=== PATIENT | male | born 1955 | race Caucasian/White ===

== ENCOUNTER 2016-10-14 11:35 | Inpatient (IN) | payer OTHER ==
--- NOTE | ~2016-10-14 | DS ---
Discharge Summary [facility] [address] [place]. [address] NAME: VIJAY POTTER : 57 STATUS : DIS IN PAT#: [id number] AGE: 61 ADM/REG DATE : 10/14/16 MR#: [id number] REPORT SERV DATE: 10/22/16 DICTATED BY: ROSALIO NARVAEZ DATE: 10/21/16 REPORT STATUS : Draft TRANSCRIBED BY: MODL DATE: 10/21/16 ADMISSION DATE: 10/14/2016 DISCHARGE DATE: 10/21/2016 CHIEF COMPLAINT ON ADMISSION: Shortness of breath, dyspnea on exertion, hypoxia, fevers, chills. DISCHARGE DIAGNOSES: 1. Acute pulmonary embolism with pulmonary hypertension, right ventricular systolic pressure of 64. 2. Acute hypoxic respiratory failure, discharged on home O2. 3. Diabetes mellitus. 4. Obstructive sleep apnea with obesity. 5. Chronic kidney disease status post nephrectomy. 6. Hypertension. 7. Pneumonia, community-acquired. HISTORY OF PRESENT ILLNESS: Please see full H and P from admission by nurse practitioner, Luz Medina. HOSPITAL COURSE: 1. Acute hypoxic respiratory failure. The patient was initially requiring very high level of high-flow nasal cannula. He was then able to be weaned down to 2 L nasal cannula. Presumably, this is due to his pulmonary emboli. Unable to do a CTA due to his kidney function. V/Q scan consistent with PE. Echocardiogram showing pulmonary hypertension with an RVSP of 64. Briefly, he stayed at [facility]. At this point, we have been able to wean him down to 2 L of nasal cannula. He will follow up with Pulmonary Medicine in [address] scan. There is question of a possible mass. At that point, they will determine if bronchoscopy is necessary. 2. Left-sided pneumonia. He was treated with 8 days of cefepime. We will discharge with an additional three days of Augmentin. 3. CKD with history of right nephrectomy for ICC in May 2016. He had mild acute kidney injury this admission with creatinine up to 2.1. His baseline is approximately 1.7ish. He is 1.82 at discharge. He can follow up with his outpatient urologist. 4. Obesity and obstructive sleep apnea. Continue nocturnal CPAP. 5. Hypertension and controlled on home medications. 6. Diabetes type 2, was controlled by diet at baseline with A1c of 6.4. He did require basal insulin with steroids. However, as the steroids were weaned, he is back to being diet controlled. 7. Pulmonary embolism. The patient, as mentioned above, was unable to get contrast due to kidney function. He did have a V/Q scan, which showed multiple moderate and large sized mismatch perfusion defect involving the lungs consistent with high probability for PE. He was started on heparin drip and has now been transitioned to Eliquis. He will follow up as mentioned above with Dr. Robert from Pulmonary Medicine. His echocardiogram, other than the RVSP of 64 with some RV dilatation, showed a normal left ventricular size and systolic function with an ejection fraction of 60%. Dr. Lopes who Discharge Summary [address] [address] NAME: VIJAY POTTER : 57 STATUS : DIS IN PAT#: [id number] AGE: 61 ADM/REG DATE : 10/14/16 MR#: [id number] REPORT SERV DATE: 10/22/16 DICTATED BY: ROSALIO NARVAEZ DATE: 10/21/16 REPORT STATUS : Draft TRANSCRIBED BY: DARIA DATE: 10/21/16 is the patient's outpatient studio operation engineer did follow him inpatient for a couple of days and had no further recommendations. DISCHARGE MEDICATIONS: Include Coreg 3.125 p.o. b.i.d., Norvasc 5 mg daily, Eliquis 10 mg p.o. b.i.d. for 11 more doses and 5 mg p.o. b.i.d., Augmentin for 3 more days, Fenofibrate 160 mg daily, verapamil 100 mg at bedtime, Robaxin p.r.n., Symbicort two puffs b.i.d., albuterol p.r.n., vitamin D and a probiotic. He will be discharged to home with 2 L nasal cannula continuously. Continue nocturnal BiPAP. FOLLOWUP: With Dr. Robert in 6 weeks and primary care in the interim. Follow up Dr. Lopes in Urology as previously scheduled. PERTINENT LABORATORY DATA: Prior to discharge, creatinine of 1.82. Hemoglobin of 13.3, white blood cell count of 14.3. Time spent on this discharge is greater than 30 minutes. [facility]/DARIA Rosalio Narvaez MD / [id number] CC: MD Vijay Lazcano M.D.
--- NOTE | ~2016-10-14 | HP ---
History And Physical [facility] [address] [facility] [place]. [address] NAME: PETER POTTER : 57 STATUS : ADM IN PAT#: [id number] AGE: 61 ADM/REG DATE : 10/14/16 MR#: [id number] REPORT SERV DATE: 10/15/16 DICTATED BY: DATE: REPORT STATUS : Draft TRANSCRIBED BY: DARIA DATE: 10/14/16 DATE OF ADMISSION: 10/14/2016 CHIEF COMPLAINT: Shortness of breath at rest, dyspnea on exertion, hypoxemia, fever, chills. PRIMARY UROLOGIST: Dr. Munson. Next office visit scheduled for December [address], status post right nephrectomy. PRIMARY MECHANICAL DEVELOPER PROVER: Dr. Curry, [facility]. New patient visit, 10/09/2016. PRIMARY PLANT ANATOMY TEACHER: Dr. Lopes. Last office visit 09/20/2016 with every 6-month followup. PRIMARY GRANITE CUTTER APPRENTICE: Dr. Greenberg. Last office visit, August 2016. HISTORY OF PRESENTING ILLNESS: The patient's history was obtained through careful interview with the patient coupled with review of [facility] records. The patient is a 61-year-old male, who presented to [facility] Emergency Department today with complaints of difficulty breathing at rest and severe dyspnea on exertion. The patient also reported an elevated temperature of 100.7 with chills last night. The patient complained of coming short of breath with activity approximately one week ago that has significantly increased over the past 2-3 days. The patient now complains of extreme shortness of breath at rest and with exertion. The patient stated that he has suffered from chronic "left lung pain" since September 2015. The patient describes this pain has stabbing in nature and intermittent throughout every day. The pain is rated between 7 and 10/10 on the pain scale. The patient also complains of left chest wall tenderness to palpation that radiates to left lateral ribs. The patient reports being hospitalized at [facility] between the dates of July 02, 2016 and July 04, 2016, for acute on chronic left lung pain. The patient states discharge diagnosis was musculoskeletal pain with no definitive underlying diagnoses to explain ongoing pain. The patient was referred to Dr. Curry, tub operator by his PCP for further evaluation and treatment of chronic left lung pain. The patient attended his first visit, 10/09/2016. During initial office visit, the patient was placed on Symbicort and a rescue inhaler. The patient is scheduled for an outpatient CT of the chest on 10/23/2016 with additional followup visit with Dr. Curry. The patient denies any known exposure to recent illness within his household. The patient did not receive a flu or pneumonia vaccine this year. It is noteworthy to mention that the patient stated he was referred to Dr. Lopes at [address] [address] NAME: PETER POTTER : 57 STATUS : ADM IN PAT#: [id number] AGE: 61 ADM/REG DATE : 10/14/16 MR#: [id number] REPORT SERV DATE: 10/15/16 DICTATED BY: DATE: REPORT STATUS : Draft TRANSCRIBED BY: DARIA DATE: 10/14/16 [facility] within the past year to rule out possible cardiac issues that could be contributing to chronic left lung pain. The patient states that his last office visit by Dr. Lopes was September 2016 and that he will return again for re-evaluation in 6 months. The patient states that all cardiac diagnostic workups have been negative. REVIEW OF SYSTEMS: Constitutional: Positive for recent fever reported to be 100.7 with chills within past 24 hours. Eyes: The patient wears glasses. No complaints of blurred or double vision. HEENT: No complaints of headache or sore throat. Cardiovascular: Complained of chronic atypical left-sided chest pain. Denies palpitations or syncopal episodes. Respiratory: Complains of left-sided pleuritic pain with shortness of breath at rest and dyspnea on exertion. Denies cough, wheezing, or hemoptysis. History of pneumonia in 1995 requiring hospitalization. Gastrointestinal: Denies nausea, vomiting, abdominal pain, diarrhea, and constipation. Last bowel movement was reported to be this morning. Musculoskeletal: Complains of chronic left calf cramping during the night x1 month. Integument: Denies rash or nonhealing wounds. Neurologic: Denies history of weakness, tremor, stroke, TIA, and seizure. Hematologic: Denies history of anemia, iron deficiency. Psychiatric: Denies history of depression, bipolar, and anxiety. : Denies dysuria or hematuria. Positive for recent renal cell cancer with right radical nephrectomy, May 2016. Endocrine: Positive for type 2 diabetes mellitus. HEALTH MAINTENANCE: The patient has not received flu vaccine. PAST MEDICAL HISTORY: 1. Right renal cell carcinoma, localized, status post right nephrectomy. 2. Chronic kidney disease with history of acute kidney injury, May 2016. 3. Hypertension. 4. Hyperlipidemia. 5. Obstructive sleep apnea with home CPAP use. 6. Type 2 diabetes mellitus, last A1c more than 1 year ago, diet controlled. 7. Obesity. 8. Pneumonia in 1995, requiring hospitalization. 9. Bronchitis. History of no recurrences since tobacco cessation 4 years ago. PAST SURGICAL HISTORY: 1. Right radical nephrectomy, 05/31/2016. 2. Cardiac catheterization, November 2015. 3. Left inguinal hernia repair, . SOCIAL HISTORY: The patient is a nonsmoker x4 years having smoked one pack per day. The patient has been for five years and has no children. 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 He denies the use of alcohol or illicit drugs. FAMILY HISTORY: The patient's mother is 78 years old and in general good health. The patient's father at age 76 from complications related to lung cancer. The patient's father also had history of heart disease. The patient has 2 brothers and sister. History And Physical [address] [address] NAME: PETER POTTER : 57 STATUS : ADM IN [facility]#: [id number] AGE: 61 ADM/REG DATE : 10/14/16 MR#: [id number] REPORT SERV DATE: 10/15/16 DICTATED BY: DATE: REPORT STATUS : Draft TRANSCRIBED BY: DARIA DATE: 10/14/16 FAMILY HISTORY: Positive for lung cancer, heart disease, and type 2 diabetes mellitus. HOME MEDICATIONS: 1. Albuterol two puffs inhaled every six hours as needed for shortness of breath. 2. Norvasc 5 mg tablet p.o. daily. 3. Symbicort 160/4.5 inhaler two puffs inhaled twice daily. The patient states he does not take this medication due to no relief in symptoms. 4. Coreg 3.125 mg tablet p.o. twice daily. 5. Vitamin D3 1000 units p.o. daily. 6. Fenofibrate 160 mg p.o. daily. 7. Methocarbamol 500 mg tablet p.o. daily as needed. 8. Probiotic [id number] p.o. daily. 9. Verelan PM 100 mg tablet p.o. at bedtime. ALLERGIES: NO KNOWN DRUG ALLERGIES. PHYSICAL EXAMINATION: VITAL SIGNS: The patient stands 5 feet 11 inches tall and weighs 128.82 kg. Oxygen saturation on room air is 81% and 96% on 11 L high-flow nasal cannula. Blood pressure is 120/77, temperature 98.2, heart rate 107, and respirations 15. NEUROLOGIC: The patient is alert with no focal deficits. GENERAL: The patient is good health historian, cooperative, no apparent distress, awake, alert, oriented x3. NECK: No lymphadenopathy. Posterior oropharynx is visible without lesions or exudate. Upper and lower dentures intact. CHEST: Left sternal border tender to palpation to just beneath the nipple line. Left lateral ribs also tender to palpation. No evidence of bruising, redness, warmth, or skin breakdown. LUNGS: Shallow inspiratory effort. Left upper lobe diminished, distant at bilateral bases. No wheezes. No rhonchi. CARDIOVASCULAR: Regular rate and rhythm with no murmurs, rubs, or gallops. Extremities: Trace of bilateral lower extremity edema. Thick calves. PSYCH: Normal affect. Demonstrates good decision making ability. LABORATORY DATA: Sodium 139, potassium 4.0, BUN 18, creatinine 2.07, glucose 147, calcium 8.6, white blood cell count 9.9, hemoglobin 13.2, hematocrit 38.4, platelets 210. Arterial blood gas, pH 7.47, pCO2 34, PO2 68, O2 saturation 94.2%, FiO2 44%. PERTINENT TESTS AND PROCEDURES: 1. Chest x-ray obtained today reported focal patchy infiltrate, left upper lobe projecting over the upper left hilum and lateral to the aortic arch. Probable acute left upper lobe pneumonia. Recommend followup chest x-ray after completion of treatment to ensure proper resolution. 2. CT of the chest without contrast performed today. Impression, atrophy and nodular infiltrates, medial left upper lobe extending anterior and superior to the left hilum and posterior to the left hilum in the superior segment left lower lobe, most consistent with an acute left-sided pneumonia in the appropriate clinical setting. No History And Physical [address] [address] NAME: PETER POTTER : 57 STATUS : ADM IN PAT#: [id number] AGE: 61 ADM/REG DATE : 10/14/16 MR#: [id number] REPORT SERV DATE: 10/15/16 DICTATED BY: DATE: REPORT STATUS : Draft TRANSCRIBED BY: DARIA DATE: 10/14/16 associated adenopathy. ASSESSMENT AND PLAN: 1. Acute respiratory failure with hypoxia. The patient is requiring high-flow nasal cannula at 11 L to maintain O2 saturation above 92%. Oxygen saturation is 81% on room air, now and was reported to be 74% on room air in the emergency department. The patient has no history of lung disease to include no COPD or asthma. Administered DuoNeb treatment x1 now and then scheduled every six hours. The exact etiology of severe hypoxia is unclear, however, appears to be related to new diagnosis of left upper lobe infiltrate. 2. Healthcare-associated pneumonia. Upon presentation to the emergency department, treatment for community acquired pneumonia was initiated based on chest x-ray indicating acute left upper lobe infiltrate. However, further interview with the patient revealed that he had been hospitalized as an inpatient between the dates of 09/01/2015 through 09/03/2015 for evaluation and treatment of a chronic left-sided lung pain. The patient received one dose of Rocephin and Zithromax while in the ER. These antibiotics will now be discontinued, and antibiotic treatment will be changed to cefepime 1 g every six hours plus vancomycin 1 g IV now and then pharmacy to dose to cover healthcare-associated pneumonia. There is also concern for systemic inflammatory response syndrome with patient reporting elevated temperature at home of 100.7, tachycardia, abnormal ABGs, and severe hypoxia requiring high-flow nasal cannula. The patient denies any cough. No sputum culture has been collected. Pending labs include blood culture x2 sites, procalcitonin, lactate, and urine strep/Legionella. Pulmonology has been consulted for rounding tomorrow for further evaluation, treatment and recommendations for acute respiratory failure with hypoxia in the setting of chronic left-sided lung pain x1 year. 3. Obstructive sleep apnea. The patient reports compliance nightly with home CPAP. The patient's will deliver CPAP machine before bedtime tonight. 4. Chronic kidney disease with non-anion gap metabolic acidosis. The patient was recently diagnosed with right renal cell carcinoma and is status post radical right nephrectomy, 05/31/2016. Prior to nephrectomy, the patient's baseline creatinine was estimated to be between 1.2 and 1.4. During May hospitalization for nephrectomy, the patient suffered acute kidney injury that was believed to be related to acute tubular necrosis secondary to hypotension status post surgery. The patient is being followed outpatient by Dr. Greenberg, placement coordinator. Last office visit was August 2016 with followup in 4 months. Per patient, his goal creatinine status post nephrectomy is less than 1.5. The patient reports placement coordinator stating creatinine is not trending downward as quickly as would expect, but there is improvement. We will continue to monitor renal function daily and avoid nephrotoxic medications. 5. Hypertension. Continue home medications to include amlodipine, Verelan PM and carvedilol. 6. Hyperlipidemia. The patient does not take home medications for this condition. 7. Type 2 diabetes mellitus. The patient states this is diet controlled. Last A1c was more than 1 year ago. The patient follows up with primary care physician for management of this condition. The patient will be placed on sliding scale insulin level 1 in the morning and at bedtime and A1c will be obtained. 8. DVT prophylaxis. The patient will be placed on heparin 5000 units subcu every eight [facility] [address] [address] NAME: PETER POTTER : 57 STATUS : ADM IN [facility]#: [id number] AGE: 61 ADM/REG DATE : 10/14/16 MR#: [id number] REPORT SERV DATE: 10/15/16 DICTATED BY: DATE: REPORT STATUS : Draft TRANSCRIBED BY: MODL DATE: 10/14/16 hours in light of elevated creatinine. 9. Code status. The patient is full code. The care of this patient will be transferred to the service of Dr. Serge Haro. [facility]/DARIA MARY Morgan / [id number] CC: Leonie Leija M.D.
--- NOTE | ~2016-10-14 | CN ---
Consultation Report [facility] [address] [place]. [address] NAME: PETER BARRON : 57 STATUS : ADM IN PAT#: [id number] AGE: 61 ADM/REG DATE : 10/14/16 MR#: [id number] REPORT SERV DATE: 10/15/16 DICTATED BY: ANSELMO PETERS DATE: 10/14/16 REPORT STATUS : Draft TRANSCRIBED BY: DARIA DATE: 10/14/16 CONSULTATION DATE OF CONSULTATION: REASON FOR CONSULTATION: Shortness of breath, fevers, chills, left-sided atypical chest pain. HISTORY OF PRESENT ILLNESS: Mr. Barron is a pleasant 61-year-old gentleman with a significant past medical history of renal cell carcinoma, status post nephrectomy; chronic kidney disease with a baseline creatinine of 1.2 to 1.4; obstructive sleep apnea, compliant with CPAP; hypertension; hyperlipidemia; obesity; and heavy tobacco abuse, quit 4 years ago, who presents to [facility] with 1 week of worsening shortness of breath and dyspnea on exertion. He has no prior history of diagnosed lung disease, but was recently seen by Dr. Edy Curry, midlevel practitioner, to establish care. He states that he has had subjective fevers, chills, and shortness of breath, and no cough. He also has chest tightness and left-sided reproducible chest pain just below the nipple line on the left. He has undergone extensive cardiac workup including a cardiac catheterization in November [address] Lopes that did not demonstrate any cardiac etiology. The patient states that he has felt better while on oxygen, but still describes his shortness of breath as moderate to severe in nature, well localized to the chest, nonradiating, with no other alleviating or exacerbating factors. REVIEW OF SYSTEMS: A detailed 14-point review of systems was completed. Pertinent positives and negatives are listed above. PAST MEDICAL HISTORY: 1. Renal cell carcinoma, status post nephrectomy. 2. Chronic kidney disease with a baseline creatinine of 1.2 to 1.4. 3. Hypertension. 4. Hyperlipidemia. 5. Obstructive sleep apnea, on CPAP. 6. Type 2 diabetes, diet controlled. 7. Obesity. 8. Pneumonia in 1995, requiring hospitalization. 9. Bronchitis history. PAST SURGICAL HISTORY: 1. Right radical nephrectomy on 05/31/[address] Munson. 2. Cardiac catheterization in November [address] Lopes. 3. Left inguinal hernia repair in the . Consultation Report [place] [id number] [facility] [place]. [address] NAME: PETER BARRON : 57 STATUS : ADM IN PAT#: [id number] AGE: 61 ADM/REG DATE : 10/14/16 MR#: [id number] REPORT SERV DATE: 10/15/16 DICTATED BY: ANSELMO PETERS DATE: 10/14/16 REPORT STATUS : Draft TRANSCRIBED BY: DARIA DATE: 10/14/16 ALLERGIES: NO KNOWN DRUG ALLERGIES. HOME MEDICATIONS: Including Symbicort and ProAir were reviewed and located in the paper chart. 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 He was a heavy smoker since his teens and smoked for at least 30 to 40 years, 1 pack per day, and quit 4 years ago. He denies any significant history of alcohol or illicit drug abuse. FAMILY HISTORY: Lung cancer and heart disease. PHYSICAL EXAMINATION: VITAL SIGNS: Afebrile, T-current of 98.2, pulse of 107, respiratory rate of 18, 11 L high- flow nasal cannula 96%, blood pressure 120/77, 5 feet 11 inches, 284 pounds, BMI of 39. GENERAL: Extremely pleasant gentleman, morbidly obese, yony in appearance. HEENT: Normocephalic, atraumatic. Pupils are equal, round, reactive to light and accommodation. Posterior oropharynx is crowded, but clear. NECK: No JVD. Thick neck. CARDIOVASCULAR: Regular rate and rhythm. S1 and S2 present. LUNGS: Diminished breath sounds bilaterally due to body habitus, but end-expiratory wheeze is noted on forced expiration bilaterally. ABDOMEN: Protuberant, nontender, nondistended, soft. Positive bowel sounds. EXTREMITIES: No clubbing, cyanosis, or edema. Skin: No new rashes, lesions, or ulcers. PSYCHIATRIC: Alert and oriented x3. Appropriate mood and affect. Appropriate insight and judgment. NEUROLOGIC: 5/5 strength in the upper and lower extremities. Cranial nerves II through XII intact. Gait not tested. DTRs not performed. LABORATORY DATA: White count of 9.9, hemoglobin of 13, platelet count of 210; no left shift. Procalcitonin normal. Lactate 1.4. Creatinine of 2.07, up from his baseline. pH of 7.47, PaCO2 of 34, PaO2 of 68, on 44% FiO2. IMAGING: Chest CT without contrast was personally reviewed by me and I agree with the following interpretation: Nodular infiltrates noted in the medial left upper lobe extending anteriorly and superiorly to the posterior left hilum and the superior subsegment of the lower lobe, most consistent with acute left-sided pneumonia in the appropriate clinical setting. No associated adenopathy. The CT scan was personally reviewed by me and I agree with the above interpretation; however, there is a mass-like component in the left upper lobe with a peripheral area of ground glass surrounding it. This could also represent an inflammatory process such as vasculitis or a primary bronchogenic carcinoma with a postobstructive or associated infiltrate. Consultation Report [address] [address] NAME: PETER BARRON : 57 STATUS : ADM IN [facility]#: [id number] AGE: 61 ADM/REG DATE : 10/14/16 MR#: [id number] REPORT SERV DATE: 10/15/16 DICTATED BY: ANSELMO PETERS DATE: 10/14/16 REPORT STATUS : Draft TRANSCRIBED BY: DARIA DATE: 10/14/16 ASSESSMENT AND PLAN: Mr. Barron is an extremely pleasant 61-year-old gentleman with a significant past medical history of prior heavy tobacco abuse, chronic kidney disease, renal cell carcinoma status post right-sided radical nephrectomy on 05/31/2016, and negative cardiac catheterization in November 2015, who presents with a 1-week history of worsening shortness of breath, dyspnea on exertion, chest tightness, and wheezing. The patient was found to have significant hypoxemia, now requiring 11 L high-flow nasal cannula. The patient's CT scan demonstrates a mass-like consolidation with an area of ground glass infiltrate associated with the left hilum. The clinical and radiographic presentation is most consistent with the followin. The left upper lobe mass-like consolidation could be consistent with health care associated pneumonia; however, he has no significant white count, no left shift, and a negative procalcitonin. Other potential etiologies could include a noninfectious inflammatory disease process such as BOOP, ASSOCIATE ARTISTIC DIRECTOR, or vasculitis. Given his history of renal cell carcinoma, this could also represent a metastatic lesion or a new primary bronchogenic carcinoma. 2. Obstructive sleep apnea, compliant with continuous positive airway pressure. 3. Obesity. 4. Acute exacerbation of chronic obstructive pulmonary disease. 5. Unexplained left-sided chest wall pain, reproducible. To optimize his pulmonary status and better elucidate the underlying causes of his shortness of breath, I recommend the followin. Favor continued empiric HCAP therapy for the next 24 to 72 hours - continue vancomycin and cefepime. 2. Add Solu-Medrol, Brovana, Pulmicort, DuoNeb scheduled and p.r.n. 3. Await V/Q scan. 4. CPAP at bedtime. 5. Check vasculitis labs including MARNI, ANCA panel, rheumatoid factor, ESR, and CRP. 6. Oxygen therapy. 7. We may consider bronchoscopy pending his clinical response and findings on the V/Q scan. Thank you for allowing me to participate in Mr. Barron's care. Sincerely, ROBIN/DARIA Anselmo Peters M.D. / [id number] Consultation Report [address] [address] NAME: PETER BARRON : 57 STATUS : ADM IN [facility]#: [id number] AGE: 61 ADM/REG DATE : 10/14/16 MR#: [id number] REPORT SERV DATE: 10/15/16 DICTATED BY: ANSELMO PETERS DATE: 10/14/16 REPORT STATUS : Draft TRANSCRIBED BY: MODL DATE: 10/14/16 CC: Leonie Leija M.D.
[~2016-10-14 11:35] MED LIST: ASAB PO; COREG3 PO; IMDUR60 PO; LIPITOR20 PO; LOFIB160 PO; NITROSTAT0.4 MG SL; NORV5 PO; PCET PO; PRIN5 PO; VERELANPM1 PO
[2016-10-14 12:01] LABS: BASOPHILS 0.3 %; BASOPHILS ABSOLUTE 0.03 10/3/uL (0.0-0.16); ER CBC TAT 0 Hrs 05 Mins; HEMOGLOBIN 13.2 g/dL (13.6-17.8); IMMATURE GRANULOCYTES 0.3 %; IMMATURE GRANULOCYTES ABSOLUTE 0.03 10/3/uL (0.0-0.11); LYMPHOCYTES 12.8 %; LYMPHOCYTES ABSOLUTE 1.27 10/3/uL (0.67-4.30); MEAN CORPUS HGB CONC 34.4 g/dL (32.0-36.0); MEAN CORPUSCULAR HEMOGLOB 31.3 pg (26.0-34.0); MEAN PLATELET VOLUME 9.3 fL (9.2-13.0); MONOCYTES 12.3 %; MONOCYTES ABSOLUTE 1.22 10/3/uL (0.21-1.20); NEUTROPHILS 73.3 %; NEUTROPHILS ABSOLUTE 7.25 10/3/uL (2.02-8.40); PLATELET COUNT 210 10/3/uL (150-400); RBC DISTRIBUTION WIDTH 13.6 % (12.0-16.0); RED CELL COUNT 4.22 10/6/uL (4.7-6.1); WHITE BLOOD CELLS 9.9 10/3/uL (4.5-10.5)
[2016-10-14 12:02] LABS: HEMATOCRIT 38.4 % (40.0-51.0); MANUAL DIFF NO %
[2016-10-14 12:16] LABS: A/G RATIO 0.9 (0.7-1.9); ALBUMIN 3.3 G/DL (3.5-5.0); ALKALINE PHOSPHATASE 73 U/L (45-117); BUN (BLOOD UREA NITROGEN) 18 MG/DL (6-23); CALCIUM, SERUM 8.6 MG/DL (8.5-10.4); CHLORIDE, SERUM 106 MMOL/L (96-112); CREATININE 2.07 MG/DL (0.70-1.30); GFR AFRICAN AMERICAN 39 ML/MIN (>=60); GFR NON AFRICAN AMERICAN 34 ML/MIN (>=60); GLOBULIN 3.6 G/DL (2.5-4.1); SGOT(AST) 17 U/L (5-40); SGPT(ALT) 29 U/L (5-65); SODIUM, SERUM 139 MMOL/L (135-148); TOTAL BILIRUBIN 0.9 MG/DL (0-1.2); TOTAL PROTEIN 6.9 G/DL (6.0-8.5)
[2016-10-14 12:17] LABS: CO2 (CARBON DIOXIDE) 21 MMOL/L (24-34); GLUCOSE, SERUM 147 MG/DL (60-99)
[2016-10-14 12:46] LABS: INFLUENZA A SCREEN NEGATIVE (NEGATIVE); INFLUENZA B SCREEN NEGATIVE (NEGATIVE)
[2016-10-14] MEDS ORDERED: VERELANPM1 PO (13:29)
[2016-10-14] MEDS ORDERED: LOFIB160 PO (13:29)
[2016-10-14] MEDS ORDERED: COREG3 PO (13:30)
[2016-10-14] MEDS ORDERED: METHOC500B PO (13:30)
[2016-10-14] MEDS ORDERED: NORV5 PO (13:30)
[2016-10-14] MEDS ORDERED: VITAMIN D31000 UNIT PO (13:31)
[2016-10-14] MEDS ORDERED: SYMBICORT 160/41 INH INH (13:31)
[2016-10-14] MEDS ORDERED: PROAIR HFA INH (13:32)
[2016-10-14] MEDS ORDERED: PROBIOTIC PO (13:32)
[2016-10-14 14:24] LABS: ALLENS TEST Pos; BE (BASE EXCESS) 0.8 MEQ/L (0 +/- 2.5); CARBOXYHEMOGLOBIN 1.2 % (0-3); HEMOBLOGIN CONTENT 13.6 G/DL (14-18); INSTRUMENT SERIAL # 8087; METHEMOGLOBIN 0.2 % (0-3); O2 CONTENT 17.8 VOL% (18-24); OPERATOR ID 14335; PCO2 (CO2 TENSION) 34 MMHG (35-45); PO2 (O2 TENSION) 68 MMHG (79-93); SAMPLE Arterial; pH 7.47 (7.37-7.43)
[2016-10-14 23:29] LABS: RHEUMATOID FACTOR QUANT < 10 IU/ML (0-15)
[2016-10-15 05:11] LABS: BASOPHILS 0.1 %; BASOPHILS ABSOLUTE 0.01 10/3/uL (0.0-0.16); EOSINOPHILS 0 %; HEMATOCRIT 36.4 % (40.0-51.0); HEMOGLOBIN 12.3 g/dL (13.6-17.8); IMMATURE GRANULOCYTES 0.1 %; IMMATURE GRANULOCYTES ABSOLUTE 0.01 10/3/uL (0.0-0.11); LYMPHOCYTES 14.1 %; LYMPHOCYTES ABSOLUTE 1.01 10/3/uL (0.67-4.30); MEAN CORPUS HGB CONC 33.8 g/dL (32.0-36.0); MEAN CORPUSCULAR HEMOGLOB 30.9 pg (26.0-34.0); MEAN CORPUSCULAR VOLUME 91.5 fL (80-100); MEAN PLATELET VOLUME 9.7 fL (9.2-13.0); MONOCYTES 2.7 %; MONOCYTES ABSOLUTE 0.19 10/3/uL (0.21-1.20); NEUTROPHILS ABSOLUTE 5.93 10/3/uL (2.02-8.40); PLATELET COUNT 196 10/3/uL (150-400); RBC DISTRIBUTION WIDTH 13.4 % (12.0-16.0); RED CELL COUNT 3.98 10/6/uL (4.7-6.1); WHITE BLOOD CELLS 7.2 10/3/uL (4.5-10.5)
[2016-10-15 05:19] LABS: MANUAL DIFF NO %
[2016-10-15 05:22] LABS: CALCIUM, SERUM 8.9 MG/DL (8.5-10.4); CHLORIDE, SERUM 106 MMOL/L (96-112); CO2 (CARBON DIOXIDE) 21 MMOL/L (24-34); GFR AFRICAN AMERICAN 38 ML/MIN (>=60); GFR NON AFRICAN AMERICAN 33 ML/MIN (>=60); POTASSIUM, SERUM 4.4 MMOL/L (3.5-5.3); SODIUM, SERUM 138 MMOL/L (135-148)
[2016-10-15 05:23] LABS: BUN (BLOOD UREA NITROGEN) 23 MG/DL (6-23); GLUCOSE, SERUM 200 MG/DL (60-99)
[2016-10-15 08:13] LABS: ANA TITER <1:40 TITER
[2016-10-15 12:40] LABS: BASOPHILS 0.1 %; BASOPHILS ABSOLUTE 0.01 10/3/uL (0.0-0.16); EOSINOPHILS 0 %; HEMATOCRIT 35.2 % (40.0-51.0); HEMOGLOBIN 12.4 g/dL (13.6-17.8); IMMATURE GRANULOCYTES 0.1 %; IMMATURE GRANULOCYTES ABSOLUTE 0.01 10/3/uL (0.0-0.11); LYMPHOCYTES 9.9 %; LYMPHOCYTES ABSOLUTE 1.12 10/3/uL (0.67-4.30); MEAN CORPUS HGB CONC 35.2 g/dL (32.0-36.0); MEAN CORPUSCULAR HEMOGLOB 31.4 pg (26.0-34.0); MEAN CORPUSCULAR VOLUME 89.1 fL (80-100); MEAN PLATELET VOLUME 9.9 fL (9.2-13.0); MONOCYTES 7.5 %; MONOCYTES ABSOLUTE 0.85 10/3/uL (0.21-1.20); NEUTROPHILS 82.4 %; NEUTROPHILS ABSOLUTE 9.38 10/3/uL (2.02-8.40); PLATELET COUNT 210 10/3/uL (150-400); RBC DISTRIBUTION WIDTH 13.4 % (12.0-16.0); RED CELL COUNT 3.95 10/6/uL (4.7-6.1)
[2016-10-15 12:41] LABS: MANUAL DIFF NO %; WHITE BLOOD CELLS 11.4 10/3/uL (4.5-10.5)
[2016-10-15 12:48] LABS: INTERNATIONAL NORMAL RATI 1.2 UNITS (-); PARTIAL THROMBO TIME 28.4 SEC (22.5-37.2); PROTIME (NOT ORD) 15.4 SEC (12.0-14.5)
[2016-10-16 04:36] LABS: BASOPHILS 0.1 %; BASOPHILS ABSOLUTE 0.01 10/3/uL (0.0-0.16); EOSINOPHILS 0.1 %; EOSINOPHILS ABSOLUTE 0.01 10/3/uL (0.0-0.53); HEMATOCRIT 37.6 % (40.0-51.0); HEMOGLOBIN 12.8 g/dL (13.6-17.8); IMMATURE GRANULOCYTES 0.3 %; IMMATURE GRANULOCYTES ABSOLUTE 0.06 10/3/uL (0.0-0.11); LYMPHOCYTES 10.6 %; LYMPHOCYTES ABSOLUTE 1.98 10/3/uL (0.67-4.30); MANUAL DIFF NO %; MEAN CORPUSCULAR HEMOGLOB 30.9 pg (26.0-34.0); MEAN CORPUSCULAR VOLUME 90.8 fL (80-100); MONOCYTES 10.3 %; MONOCYTES ABSOLUTE 1.92 10/3/uL (0.21-1.20); NEUTROPHILS 78.6 %; NEUTROPHILS ABSOLUTE 14.63 10/3/uL (2.02-8.40); PLATELET COUNT 256 10/3/uL (150-400); RBC DISTRIBUTION WIDTH 13.3 % (12.0-16.0); RED CELL COUNT 4.14 10/6/uL (4.7-6.1); WHITE BLOOD CELLS 18.6 10/3/uL (4.5-10.5)
[2016-10-16 04:42] LABS: PARTIAL THROMBO TIME 79.8 SEC (22.5-37.2)
[2016-10-16 05:03] LABS: BUN (BLOOD UREA NITROGEN) 23 MG/DL (6-23); CHLORIDE, SERUM 103 MMOL/L (96-112); CO2 (CARBON DIOXIDE) 22 MMOL/L (24-34); CREATININE 2.08 MG/DL (0.70-1.30); GFR AFRICAN AMERICAN 39 ML/MIN (>=60); GFR NON AFRICAN AMERICAN 34 ML/MIN (>=60); GLUCOSE, SERUM 187 MG/DL (60-99); POTASSIUM, SERUM 3.8 MMOL/L (3.5-5.3); SODIUM, SERUM 138 MMOL/L (135-148)
[2016-10-16 05:07] LABS: TROPONIN I 0.07 NG/ML (<0.05)
[2016-10-16 22:57] LABS: ANCA <1:20 (()); MYELOPEROXIDASE ANTIBODY <0.2 AI (<1.0); PROTEINASE 3 ANTIBODY <0.2 AI (<1.0)
[2016-10-17 04:11] LABS: BUN (BLOOD UREA NITROGEN) 26 MG/DL (6-23); CALCIUM, SERUM 8.3 MG/DL (8.5-10.4); CHLORIDE, SERUM 106 MMOL/L (96-112); CO2 (CARBON DIOXIDE) 24 MMOL/L (24-34); CREATININE 1.89 MG/DL (0.70-1.30); GFR AFRICAN AMERICAN 44 ML/MIN (>=60); GFR NON AFRICAN AMERICAN 38 ML/MIN (>=60); POTASSIUM, SERUM 3.7 MMOL/L (3.5-5.3); SODIUM, SERUM 141 MMOL/L (135-148)
[2016-10-17 04:16] LABS: GLUCOSE, SERUM 147 MG/DL (60-99)
[2016-10-17 05:36] LABS: PROCALCITONIN 0.07 ng/mL (<0.5)
[2016-10-18 04:31] LABS: BASOPHILS 0.1 %; BASOPHILS ABSOLUTE 0.01 10/3/uL (0.0-0.16); EOSINOPHILS 0.1 %; EOSINOPHILS ABSOLUTE 0.02 10/3/uL (0.0-0.53); HEMATOCRIT 34.3 % (40.0-51.0); HEMOGLOBIN 11.5 g/dL (13.6-17.8); IMMATURE GRANULOCYTES 0.8 %; IMMATURE GRANULOCYTES ABSOLUTE 0.11 10/3/uL (0.0-0.11); LYMPHOCYTES 17.1 %; LYMPHOCYTES ABSOLUTE 2.33 10/3/uL (0.67-4.30); MEAN CORPUS HGB CONC 33.5 g/dL (32.0-36.0); MEAN CORPUSCULAR HEMOGLOB 29.9 pg (26.0-34.0); MEAN CORPUSCULAR VOLUME 89.3 fL (80-100); MEAN PLATELET VOLUME 10.1 fL (9.2-13.0); MONOCYTES 10.7 %; MONOCYTES ABSOLUTE 1.46 10/3/uL (0.21-1.20); NEUTROPHILS 71.2 %; NEUTROPHILS ABSOLUTE 9.66 10/3/uL (2.02-8.40); PLATELET COUNT 272 10/3/uL (150-400); RBC DISTRIBUTION WIDTH 13.8 % (12.0-16.0); RED CELL COUNT 3.84 10/6/uL (4.7-6.1); WHITE BLOOD CELLS 13.6 10/3/uL (4.5-10.5)
[2016-10-18 04:40] LABS: MANUAL DIFF NO %
[2016-10-18 04:54] LABS: BUN (BLOOD UREA NITROGEN) 27 MG/DL (6-23); CALCIUM, SERUM 8.7 MG/DL (8.5-10.4); CHLORIDE, SERUM 103 MMOL/L (96-112); CO2 (CARBON DIOXIDE) 27 MMOL/L (24-34); CREATININE 1.97 MG/DL (0.70-1.30); GFR AFRICAN AMERICAN 42 ML/MIN (>=60); GFR NON AFRICAN AMERICAN 36 ML/MIN (>=60); GLUCOSE, SERUM 146 MG/DL (60-99); POTASSIUM, SERUM 3.5 MMOL/L (3.5-5.3); SODIUM, SERUM 139 MMOL/L (135-148)
[2016-10-19 07:00] LABS: HEMATOCRIT 35.8 % (40.0-51.0); HEMOGLOBIN 12.2 g/dL (13.6-17.8); MEAN CORPUS HGB CONC 34.1 g/dL (32.0-36.0); MEAN CORPUSCULAR HEMOGLOB 30.9 pg (26.0-34.0); MEAN CORPUSCULAR VOLUME 90.6 fL (80-100); PLATELET COUNT 290 10/3/uL (150-400); RBC DISTRIBUTION WIDTH 13.6 % (12.0-16.0); RED CELL COUNT 3.95 10/6/uL (4.7-6.1); WHITE BLOOD CELLS 14.5 10/3/uL (4.5-10.5)
[2016-10-19 07:01] LABS: MANUAL DIFF YES %
[2016-10-19 07:49] LABS: BAND NEUTROPHILS 5 %; IMMATURE GRANS ABSOLUTE (CALC) 0.29 10/3/uL (0.0-0.11); LYMPHOCYTES 12 %; LYMPHOCYTES ABSOLUTE (CALC) 1.74 10/3/uL (0.67-4.30); METAMYELOCYTES 2 %; MONOCYTES 9 %; MONOCYTES ABSOLUTE (CALC) 1.31 10/3/uL (0.21-1.20); NEUTROPHILS ABSOLUTE (CALC) 11.17 10/3/uL (2.02-8.40); PLATELET ESTIMATE ADQ (ADEQUATE); RBC MORPHOLOGY NORM (NORMAL); SEGMENTED NEUTROPHIL (0) 72 %; TOTAL NUCLEATED CELLS 100
[2016-10-20 05:41] LABS: HEMOGLOBIN 13.3 g/dL (13.6-17.8); MEAN CORPUS HGB CONC 33.8 g/dL (32.0-36.0); MEAN CORPUSCULAR HEMOGLOB 31.2 pg (26.0-34.0); MEAN CORPUSCULAR VOLUME 92.5 fL (80-100); MEAN PLATELET VOLUME 9.6 fL (9.2-13.0); PLATELET COUNT 292 10/3/uL (150-400); RBC DISTRIBUTION WIDTH 13.6 % (12.0-16.0); RED CELL COUNT 4.26 10/6/uL (4.7-6.1); WHITE BLOOD CELLS 14.3 10/3/uL (4.5-10.5)
[2016-10-20 05:44] LABS: HEMATOCRIT 39.4 % (40.0-51.0); MANUAL DIFF YES %
[2016-10-20 05:49] LABS: BUN (BLOOD UREA NITROGEN) 27 MG/DL (6-23); CALCIUM, SERUM 9.2 MG/DL (8.5-10.4); CHLORIDE, SERUM 99 MMOL/L (96-112); CO2 (CARBON DIOXIDE) 26 MMOL/L (24-34); CREATININE 1.82 MG/DL (0.70-1.30); GFR AFRICAN AMERICAN 46 ML/MIN (>=60); GFR NON AFRICAN AMERICAN 39 ML/MIN (>=60); POTASSIUM, SERUM 4.2 MMOL/L (3.5-5.3); SODIUM, SERUM 137 MMOL/L (135-148)
[2016-10-20 05:51] LABS: GLUCOSE, SERUM 102 MG/DL (60-99)
[2016-10-20 06:26] LABS: BAND NEUTROPHILS 7 %; EOSINOPHILS 1 %; EOSINOPHILS ABSOLUTE (CALC) 0.14 10/3/uL (0.0-0.53); IMMATURE GRANS ABSOLUTE (CALC) 0.72 10/3/uL (0.0-0.11); LYMPHOCYTES 9 %; LYMPHOCYTES ABSOLUTE (CALC) 1.29 10/3/uL (0.67-4.30); METAMYELOCYTES 5 %; MONOCYTES 10 %; MONOCYTES ABSOLUTE (CALC) 1.43 10/3/uL (0.21-1.20); NEUTROPHILS ABSOLUTE (CALC) 10.73 10/3/uL (2.02-8.40); PLATELET ESTIMATE ADQ (ADEQUATE); RBC MORPHOLOGY NORM (NORMAL); SEGMENTED NEUTROPHIL (0) 68 %; TOTAL NUCLEATED CELLS 100
[2016-10-21] MEDS ORDERED: ELIQUIS 5 MG TAB5 MG PO (12:20)
[2016-10-21] MEDS ORDERED: AUG875 PO (12:22)
== END 2016-10-21 14:40 | disposition home or self-care (01) | DRG 175 ==
LOC: ER 11:35 → 4EA 14:40 → IMCU 10-17 19:23 → 4EA 10-19 18:22
PROVIDERS: Hospitalist; Internal Medicine; Nurse Practitioner Family
DX: I26.99 Other pulmonary embolism without acute cor pulmonale (principal); J96.01 Acute respiratory failure with hypoxia; J18.1 Lobar pneumonia, unspecified organism; N17.9 Acute kidney failure, unspecified; J44.1 Chronic obstructive pulmonary disease with (acute) exacerbation; Z68.41 Body mass index [BMI] 40.0-44.9, adult; Y95 Nosocomial condition; G47.33 Obstructive sleep apnea (adult) (pediatric); E66.9 Obesity, unspecified; I12.9 Hypertensive chronic kidney disease with stage 1 through stage 4 chronic kidney disease, or unspecified chronic kidney disease; E11.22 Type 2 diabetes mellitus with diabetic chronic kidney disease; E11.65 Type 2 diabetes mellitus with hyperglycemia; N18.2 Chronic kidney disease, stage 2 (mild); E78.5 Hyperlipidemia, unspecified; Z90.5 Acquired absence of kidney
CPT/HCPCS: 36600; 71010; 71020; 71250; 78582; 80048; 80053; 82805; 82962; 83036; 83516; 83516-59; 83605; 83735; 83880; 84145; 84484; 85025; 85610; 85652; 85730; 86039; 86140; 86255; 86431; 87040; 87070; 87205; 87449; 87641; 87804; 93005; 93970; 94640; 96365; 96375; 99285; A9270-GY; A9540; A9567; C8929; J0456; J0692; J2920; J3370; Q9957